=== PATIENT | female | born 1990 | race Hispanic/Latino ===

== ENCOUNTER 2021-05-17 09:57 | Emergency (ER) | payer OTHER ==
--- OUTSIDE RECORDS SUMMARY | 2021-05-17 10:00 | XMS REPORT | Continuity of Care Document ---
:1990 Author Organization [facility] t Address [address] [place] [address] Care Team Providers Name Role Phone Jonah Colmenares Primary Care Physician Iraida ABREU, T Attending Clinician Unavailable Lj CAMACHO Attending Clinician Unknown Attending Clinician Unavailable Doctor Unassigned, Name Attending Clinician Unavailable Payers Payer Name Policy Type Policy Effective Expiration Source Number Date Date [employer] - [id number] 2020 Un iversity of MANAGED 00:00:00 [place] [facility] MEDICAIDSUPERIOR STAR [facility] [id number] 2020[place] [address] OF [id number] 2018 Universit y of [id number] 2017 [place]00 [place] -[phone] [facility] [address], [place] [address]Medicaid CONTINUUM GENERIC NONE 2016 Univers ity of CONTINUUM 00:00:00 [place] [facility] GENERICNONE2016-P Br anch resentAgency [facility] [id number] 2018 2021 Universi ty of [facility] - MANAGED 00:00:00 23:59:59 [place] Me dical MEDICAIDCOMMUNITY [facility] [id number], [place] [address]Medicaid Advance Directives Directive Decision Effective Termination Comments Source Date Date Healthcare Agents on N/A [place] [facility] Agent Medical RelationshipCommunicationIrene Branch BarrientesMotherHealth Care [phone] (Mobile) Problems Condition Condition Condition Status Onset Resolution Last Treating Co mments Source Name Details Category Date Date Treatment Clinician Date Abscess of Abscess of Disease Active U nivers breast, breast, 6-29 [place] Contracept Contracept Disease Active U nivers ayden yaden 6-14 ity of management management [place] Obesity Obesity Disease Active Univers (BMI (BMI 6-14 ity of 30-39.9) 30-39.9) 00:00: [place] [address] Medical Branch Anemia of Anemia of Disease Active Uni vers mother in mother in 5-14 [place]y of , , [place]ical condition condition Bran ch Research Research Disease Active Overview: Thor doyle subject: subject: 3-15 Formattin ity of [facility] 00:00: g of this [place] as Study. Study. 00 note Medical Randomized Randomized might be Branch to study to study different drug on drug on from the 12/02/2017 12/02/2017 original. . . This patient was randomize d into the PROSPECT study on 8 and got into the medicatio n study group (IRB # [id number], PI Dr. Reynoso). She'll remain in study until her due date of 8, or until delivery. Please page the PRD upon patient arrival to L&D. Pager . Email: [email or web address] Your patient has been enrolled in the Giselle [place] [facility] [employer] [facility] [employer] [facility] [place] Trial. This trial enrolls women with a twin gestation who develop cervical shortenin g (cervical length <30 mm) and randomize s them to pessary placement , vaginal progester one, or placebo. The medical evidence currently does not demonstra te benefit for treatment of short cervix in twin gestation s with any medical or surgical intervent ion, but secondary analyses of other studies have suggested that there could be a benefit to pessary or vaginal progester one treatment . This study aims to answer this important question. We appreciat e your willingne ss to allow your patient to be enrolled in this trial. In order to maintain the highest scientifi c integrity for the results of this trial, we ask that you please do not prescribe additiona l open-labe l therapies for your patient for the indicatio n of a short cervix. For example, do not prescribe vaginal progester one or place a pessary in a patient who was not randomize d to that treatment arm. Patients who are symptomat ic with evidence of labor may be treated as per your usual routine with corticost eroids, antibioti cs, tocolytic s, etc. Subsequen t cervical length measureme nt is strongly discourag ed after randomiza tion, especiall y in patients randomize d to pessary because cervical length cannot be measured in the usual fashion. If you have any questions or concerns regarding how any managemen t decisions might affect your patient s participa tion in the study, please call our research team before you recommend any additiona l treatment .Also, please do not hesitate to call Dr. Reynoso, or Gege Ham RN, [facility] at [phone], for any questions or concerns. Allergies, Adverse Reactions, Alerts This patient has no known allergies or adverse reactions. Social History Social Habit Start Date Stop Date Quantity Comments Source Exposure to Not sure University SARS-CoV-2 [place] [facility] (event) [place] Tobacco use and 2021-05-15 2021-05-15 Former user Universi ty of exposure 00:00:00 00:00:00 [facility] Alcohol intake 2021-05-15 2021-05-15 Current University 00:00:00 00:00:00 non-drinker of [facility] alcohol (finding) Branch Tobacco Comment 2017-10-17 2017-10-17 4 cigarettes per Uni versity of 00:00:00 00:00:00 week; quit while [facility] dical pregnanct Branch Alcohol Comment 2015-07-25 2015-07-25 socially prior to Un iversity of 00:00:00 00:00:00 [facility] History of 2010-08-09 2015 User of smokeless Univers ity of tobacco use 00:00:00 00:00:[address] [facility] Sex Ass[birth year] At [birth year] Universit y of 00:00:00 00:00:00 [facility] Smoking Status Start Date Stop Date Source Former smoker 2021-05-15 00:00:00 2021-05-15 00:00:[address] [facility] Medications Ordered Filled Start Stop Current Ordering Indication Dosage Frequency Signature Comments Components Source Medication Medication Date Date Medication? Clinician (SIG) Name Name [place] Yes [id number] 1{tbl} Take 1 Univers ne 0.35 mg 6-14 tablet by ity of tablet 00:00: mouth [place] 00 daily. Medical Branch norethindro Yes [id number] 1{tbl} Take 1 Univers ne 0.35 mg 6-14 tablet by ity of tablet 00:00: mouth [place] 00 daily. Medical Branch norethindro Yes [id number] 1{tbl} Take 1 Univers ne 0.35 mg 6-14 tablet by ity of tablet 00:00: mouth [place] 00 daily. Medical Branch ascorbic Yes 500mg Take 1 Univer s acid, 4-23 tablet by ity of vitamin C, 00:00: mouth [place] 500 mg 00 daily. Medical tablet Branch Yes 1{tbl} Take 1 Unive rs vitamin 4-23 tablet by ity of w/FA tablet 00:00: mouth [place] 00 daily. Medical Branch docusate Yes 240mg Take 1 Univer s calcium 240 4-23 capsule by it y of mg capsule 00:00: mouth [place] daily as Medical needed for Branch Constipati on. ferrous Yes 325mg Take 1 Univers sulfate 325 4-23 tablet by ity of mg (65 mg 00:00: mouth 2 [place] iron) 00 (two) Medical tablet times Branch daily. ibuprofen 2017- Yes 600mg Take 1 Unive rs 600 mg 4-23 tablet by ity of tablet 00:00: mouth [place] 00 every 6 Medical (six) Branch hours as needed for Pain (scale 1-3) or Pain (scale 4-6) (Pain). Take with food or milk. HYDROcodone 2018-0 Yes 1{tbl} Take 1-2 Univers -acetaminop 4-23 tablets by it y of hen 5-325 00:00: mouth [place] mg tablet 00 every 6 Medical (six) Branch hours as needed for Pain (scale 7-10). Do not exceed 3 grams of acetaminop hen in 24 hours. ascorbic 2018-0 Yes 500mg Take 1 Univer s acid, 4-23 tablet by ity of vitamin C, 00:00: mouth [place] 500 mg 00 daily. Medical tablet Branch Yes 1{tbl} Take 1 Unive rs vitamin 4-23 tablet by ity of w/FA tablet 00:00: mouth [place] 00 daily. Medical Branch docusate 0 Yes 240mg Take 1 Univer s calcium 240 4-23 capsule by it y of mg capsule 00:00: mouth [place] 00 daily as Medical needed for Branch Constipati on. ferrous 0 Yes 325mg Take 1 Univers sulfate 325 4-23 tablet by ity of mg (65 mg 00:00: mouth 2 [place] iron) 00 (two) Medical tablet times Branch daily. ibuprofen 0 Yes 600mg Take 1 Unive rs 600 mg 4-23 tablet by ity of tablet 00:00: mouth [place] 00 every 6 Medical (six) Branch hours as needed for Pain (scale 1-3) or Pain (scale 4-6) (Pain). Take with food or milk. HYDROcodone 20180 Yes 1{tbl} Take 1-2 Univers -acetaminop 4-23 tablets by it y of hen 5-325 00:00: mouth [place] mg tablet 00 every 6 Medical (six) Branch hours as needed for Pain (scale 7-10). Do not exceed 3 grams of acetaminop hen in 24 hours. ascorbic 2018-0 Yes 500mg Take 1 Univer s acid, 4-23 tablet by ity of vitamin C, 00:00: mouth [place] 500 mg 00 daily. Medical tablet Branch 0 Yes 1{tbl} Take 1 Unive rs vitamin 4-23 tablet by ity of w/FA tablet 00:00: mouth [place] 00 daily. Medical Branch docusate 0 Yes 240mg Take 1 Univer s calcium 240 4-23 capsule by it y of mg capsule 00:00: mouth [place] 00 daily as Medical needed for Branch Constipati on. ferrous 2018-0 Yes 325mg Take 1 Univers sulfate 325 4-23 tablet by ity of mg (65 mg 00:00: mouth 2 [place] iron) 00 (two) Medical tablet times Branch daily. ibuprofen 0 Yes 600mg Take 1 Unive rs 600 mg 4-23 tablet by ity of tablet 00:00: mouth [place] 00 every 6 Medical (six) Branch hours as needed for Pain (scale 1-3) or Pain (scale 4-6) (Pain). Take with food or milk. HYDROcodone Yes 1{tbl} Take 1-2 Univers -acetaminop 4-23 tablets by it y of hen 5-325 00:00: mouth [place] mg tablet 00 every 6 Medical (six) Branch hours as needed for Pain (scale 7-10). Do not exceed 3 grams of acetaminop hen in 24 hours. metoclopram Yes [id number] 10mg Take 1 Univers anali HCl 10 2-15 7 tablet by ity of mg tablet 00:00: mouth [place] 00 every 8 Medical (eight) Branch hours. metoclopram Yes [id number] 10mg Take 1 Univers anali HCl 10 2-15 7 tablet by ity of mg tablet 00:00: mouth [place] 00 every 8 Medical (eight) Branch hours. metoclopram 0 Yes [id number] 10mg Take 1 Univers anali HCl 10 2-15 7 tablet by ity of mg tablet 00:00: mouth [place] 00 every 8 Medical (eight) Branch hours. 2016-09 Yes 1{tbl} Take 1 Unive rs multivitami 2-20 tablet by ity of n tablet 00:00: mouth [place] 00 daily. Medical Branch CITRANATAL 2016-09 Yes Univers HARMONY, 2-20 ity of IRON FUM, 00:00: [place] 27 mg 00 Medical iron-1 mg Branch -50 mg-260 mg Cap 2016-09 Yes 1{tbl} Take 1 Unive rs multivitami 2-20 tablet by ity of n tablet 00:00: mouth [place] 00 daily. Medical Branch CITRANATAL 2016-09 Yes Univers HARMONY, 2-20 ity of IRON FUM, 00:00: [place] 27 mg 00 Medical iron-1 mg Branch -50 mg-260 mg Cap 2016-09 Yes 1{tbl} Take 1 Unive rs multivitami 2-20 tablet by ity of n tablet 00:00: mouth [place] 00 daily. Medical Branch CITRANATAL 2016-09 Yes Univers HARMONY, 2-20 ity of IRON FUM, 00:00: [place] 27 mg 00 Medical iron-1 mg Branch -50 mg-260 mg Cap doxylamine- 2016-09 Yes [id number] 2{tbl} Take 2 Univers pyridoxine, 2-18 tablets by it y of vit B6, 00:00: mouth at [place] (DICLEGIS) 00 bedtime. Medic al 10-10 mg Branch per tablet doxylamine- 2016-09 Yes [id number] 2{tbl} Take 2 Univers pyridoxine, 2-18 tablets by it y of vit B6, 00:00: mouth at [place] [facility] bedtime. Medic al 10-10 mg Branch per tablet doxylamine- 2016-09 Yes [id number] 2{tbl} Take 2 Univers pyridoxine, 2-18 tablets by it y of vit B6, 00:00: mouth at [place] (DICLEGI) 00 bedtime. Medic al 10-10 mg Branch per tablet Immunizations Ordered Filled Immunization Date Status Comments [facility] e Immunization Name Name MMR 2018-01-10 Completed University of 00:00:00 [facility] MMR 2018-01-10 Completed University of 00:00:00 [facility] MMR 2018-01-10 Completed University of 00:00:00 [facility] HPV9 2018-01-09 Completed University of 00:00:00 [facility] HPV9 2018-01-09 Completed University of 00:00:00 [facility] HPV9 2018-01-09 Completed University of 00:00:00 [facility] Influenza Virus 2017-10-18 Completed Universit y of Vaccine Quad IM 3+ 00:00:00 [facility] Influenza Virus 2017-10-18 Completed Universit y of Vaccine Quad IM 3+ 00:00:00 [facility] Influenza Virus 2017-10-18 Completed Universit y of Vaccine Quad IM 3+ 00:00:00 [facility] Influenza Virus 2017-08-09 Completed Universit y of Vaccine Quad IM 3+ 00:00:00 [facility] Influenza Virus 2017-08-09 Completed Universit y of Vaccine Quad IM 3+ 00:00:00 [facility] Influenza Virus 2017-08-09 Completed Universit y of Vaccine Quad IM 3+ 00:00:00 [facility] HPV9 2016-03-18 Completed University of 00:00:00 [facility] HPV9 2016-03-18 Completed University of 00:00:00 [facility] HPV9 2016-03-18 Completed University of 00:00:00 [facility] TDAP 2016-01-21 Completed University of 00:00:00 [facility] HPV9 2016-01-21 Completed University of 00:00:00 [facility] TDAP 2016-01-21 Completed University of 00:00:00 [facility] HPV9 2016-01-21 Completed University of 00:00:00 [facility] TDAP 2016-01-21 Completed University of 00:00:00 [facility] HPV9 2016-01-21 Completed University of 00:00:00 [facility] Influenza Virus 2015-07-25 Completed Universit y of Vaccine Quad IM 3+ 00:00:00 [facility] Influenza Virus 2015-07-25 Completed Universit y of Vaccine Quad IM 3+ 00:00:00 [facility] Influenza Virus 2015-07-25 Completed Universit y of Vaccine Quad IM 3+ 00:00:00 [facility] HEPATITIS A 2005-04-22 Completed University of 00:00:00 [facility] HEPATITIS A 2005-04-22 Completed University of 00:00:00 [facility] HEPATITIS A 2005-04-22 Completed University of 00:00:00 [facility] Vital Signs Vital Name Observation Time Observation Value Comments Source Systolic blood 2021-05-15 18:07:00 137 mm[Hg] Univer sity of pressure [facility] Diastolic blood 2021-05-15 18:07:00 79 mm[Hg] Unive rsity of pressure [facility] Heart rate 2021-05-15 18:07:00 100 /min [facility] Body temperature 2021-05-15 18:07:00 37.11 Madhavi [facility] rate 2021-05-15 18:07:00 16 /min [facility] Body height 2021-05-15 18:07:00 172.7 cm [facility] Body weight 2021-05-15 18:07:00 129.729 kg [facility] BMI 2021-05-15 18:07:00 43.49 kg/m2 [facility] Oxygen saturation in 2021-05-15 18:07:00 99 /min [facility] Arterial blood by [facility] Pulse oximetry [place] Procedures Procedure Date / Time Performed Performing Clinician Sour e POCT RAPID STREP 2021-05-15 18:47:00 Haleigh Calhoun [facility] SCREEN FOR GROUP A Medical Bran h ASSIGNMENT OF BENEFITS 2021-05-15 17:36:06 Doctor Unassigned, No [facility] Name [facility] Encounters Start End Encounter Admission Attending Care Care Encounter Source Date/Time Date/Time Type Type Clinicians Facility Department ID 2021-05-16 2021-05-16 Letter CESAR Khoury [id number] Univers 00:00:00 00:00:00 (Out) Radha CASTILLO [id number] it y of HOSPITAL [id number] [place] [id number] [facility] 019 Branch 2021-05-15 2021-05-15 Urgent Haleigh Calhoun [facility] [id number] Univers 12:53:20 13:13:20 Care Unknown, Attending Health [id number] ity of [place] [id number] [place]?Blea [phone] [address] Medical Office Building 2021-05-15 2021-05-15 Orders Doctor GUERRERO [id number] Univers 00:00:00 00:00:00 Only Unassigned, JONATHAN [id number] ity of [place] [facility] [id number] [place] [id number] [facility] 009 [place] Results Test Description Test Time Test Comments Results Result Comments Source POCT RAPID STREP SCREEN FOR GROUP A 2021-05-15 18:57:00 Test Item Value Reference Range Interpretation Comme nts POCT GP A STREP (test code = 65810-0) neg Negative - Negat ayden Lab Interpretation (test code = 47345-4) Normal [facility]
--- NOTE | 2021-05-17 12:34 | ER ---
Nurse's Notes [facility] Name: Apryl Rob Age: 30 yrs Sex: Female : 1990 Arrival Date: 05/17/2021 Time: 10:03 Bed 17 Private MD: Diagnosis: Pain in throat Presentation: 05/17 10:03 Chief complaint: Patient states: Diagnosed with COVID yesterday. Had a negative strep ss test yesterday, but has been complaining of sore/ swollen throat that is worse this morning. Coronavirus screen: Client presents with at least one sign or symptom that may indicate coronavirus-19. Standard/surgical mask placed on the client. Provider contacted for isolation considerations. Ebola Screen: Patient denies exposure to infectious person. Patient denies travel to an Ebola-affected area in the 21 days before illness onset. Initial Sepsis Screen: Does the patient meet any 2 criteria? No. Patient's initial sepsis screen is negative. Does the patient have a suspected source of infection? No. Patient's initial sepsis screen is negative. Risk Assessment: Do you want to hurt yourself or someone else? Patient reports no desire to harm self or others. Onset of symptoms was May 15, 2021. 10:03 Method Of Arrival: EMS: [facility] ss 10:03 Acuity: MARIELLE 3 ss Vital Signs: 10:03 BP 166 / 84; Pulse 108; Resp 20; Temp 98.9(O); Pulse Ox 99% on R/A; ss ED Course: 10:03 Patient arrived in ED. ss 10:03 Arm band placed on right wrist. ss 10:06 Triage completed. ss 10:07 Susan Hays FNP-C is PHCP. kb 10:07 Juan Marrufo MD is Attending Physician. kb 10:19 Patient has correct armband on for positive identification. Bed in low position. Call mh5 light in reach. Side rails up X 1. Pulse ox on. NIBP on. 10:19 Strep Sent. 5 10:19 Strep swab sent to lab. [facility] 10:27 Cherelle Mendez, LOIS is Primary Nurse. tr6 Administered Medications: 13:17 Drug: GI Cocktail without - (Maalox Suspension 30 ml, Lidocaine Liquid 2 % 15 tr6 ml) Route: PO; Outcome: 12:33 Discharge ordered by . kb 13:37 Patient left the ED. ss Signatures: Susan Hays, MARYC DOUG-Yamini Mireles RN RN Aysha Campbell [facility] Cherelle Mendez RN RN tr6
--- NOTE | 2021-05-17 12:34 | EDPHYS ---
Physician Documentation [facility] Name: Apryl Rob Age: 30 yrs Sex: Female : 1990 Arrival Date: 05/17/2021 Time: 10:03 Bed 17 Private MD: ED Physician Juan Marrufo HPI: 05/17 13:14 This 30 yrs old Female presents to ER via EMS with complaints of Sore Throat. kb 13:14 The patient presents with sore throat. The patient describes throat pain as constant. kb Onset: The symptoms/episode began/occurred yesterday. Severity of symptoms: At their worst the symptoms were moderate, in the emergency department the symptoms are unchanged. Modifying factors: The symptoms are alleviated by nothing, the symptoms are aggravated by swallowing, Patient's oral intake status: good. Associated signs and symptoms: Pertinent positives: Sore throat. The patient has not experienced similar symptoms in the past. The patient has been recently seen by a physician: at a clinic, out of Town, yesterday. Pt reports sore throat since yesterday. COVID positive yesterday at [facility] clinic, but continued to have sore throat today. . ROS: 13:18 Constitutional: Negative for fever, chills, and weight loss. kb 13:18 ENT: Positive for sore throat. 13:18 All other systems are negative. Exam: 13:18 Constitutional: This is a well developed, well nourished patient who is awake, alert, kb and in no acute distress. Head/Face: Normocephalic, atraumatic. Cardiovascular: Regular rate and rhythm with a normal S1 and S2. No gallops, murmurs, or rubs. No pulse deficits. Respiratory: Respirations even and unlabored. No increased work of breathing, no retractions or nasal flaring. Skin: Warm, dry with normal turgor. Normal color. MS/ Extremity: Pulses equal, no cyanosis. Neurovascular intact. Full, normal range of motion. Neuro: Awake and alert, GCS 15, oriented to person, place, time, and situation. Moves all extremities. Normal gait. Psych: Awake, alert, with orientation to person, place and time. Behavior, mood, and affect are within normal limits. 13:18 ENT: Posterior pharynx: Airway: normal, Tonsils: with erythema, Uvula: normal, midline, swelling, is not appreciated, erythema, that is moderate. Vital Signs: 10:03 BP 166 / 84; Pulse 108; Resp 20; Temp 98.9(O); Pulse Ox 99% on R/A; ss MDM: 10:07 Patient medically screened. 13:18 Data reviewed: vital signs, nurses notes. Data interpreted: Pulse oximetry: on room air kb is 99 %. Interpretation: normal. Counseling: I had a detailed discussion with the patient and/or guardian regarding: the historical points, exam findings, and any diagnostic results supporting the discharge/admit diagnosis, lab results, the need for outpatient follow up, a family practitioner, to return to the emergency department if symptoms worsen or persist or if there are any questions or concerns that arise at home. 05/17 10:10 Order name: Strep; Complete Time: 12:33 kb 05/17 12:46 Order name: Throat Culture EDMS Administered Medications: 13:17 Drug: GI Cocktail without - (Maalox Suspension 30 ml, Lidocaine Liquid 2 % 15 tr6 ml) Route: PO; Disposition: 05/18 08:32 Co-signature as Attending Physician, Juan Marrufo MD I agree with the assessment and marlene plan of care. Disposition Summary: 05/17/21 12:33 Discharge Ordered Location: Home kb Condition: Stable kb Diagnosis - Pain in throat kb Followup: kb - With: Private Physician - When: 2 - 3 days - Reason: Recheck today's complaints, Continuance of care, Re-evaluation by your physician Followup: kb - With: Emergency Department - When: As needed - Reason: Worsening of condition Discharge Instructions: - Discharge Summary Sheet kb - Sore Throat, Dsku-[id number] kb Forms: - Medication Reconciliation Form kb - Thank You Letter kb - Antibiotic Education kb - Prescription Opioid Use kb Signatures: Dispatcher [employer] EDMS Susan Hays, JARROD CAMACHO-Juan Zurita MD MD cha Ramnanan, Tiffany, RN RN tr6
[2021-05-17] MEDS ORDERED: MAGNES/ALUMIN/SIMET 30ML UCUP ONE (13:16)
[2021-05-17] MEDS ORDERED: LIDOCAINE VISCOUS 2% SOLN 15 ML UDC ONE (13:16)
[2021-05-17 13:41] VITALS: BP 166/84; TEMP 98.9; O2SAT 99
== END 2021-05-17 13:37 | disposition home or self-care (01) ==
LOC: ER 09:57
DX: R07.0 Pain in throat (principal)
CPT/HCPCS: 87070; 87081; 99284

== ENCOUNTER 2022-03-23 08:35 | Emergency (ER) | payer OTHER ==
[2022-03-23 09:13] LABS: Absolute Lymphocytes (CBC) 1.9 K/uL (0.7-4.9); Hematocrit 37.2 % (36.0-45.0); Lymphocytes % 22.7 % (15.3-44.8); MCV 72.5 fL (80-100); MPV 7.6 fL (7.6-11.3); RBC Red Blood Cell Count 5.14 M/uL (3.86-4.86)
[2022-03-23 09:31] LABS: Albumin 3.9 g/dL (3.4-5.0); Bilirubin Total 0.3 mg/dL (0.2-1.0); Potassium 3.4 mmol/L (3.5-5.1); Protein, Total 8.7 g/dL (6.4-8.2)
[2022-03-23] MEDS ORDERED: DIPHENHYDRAMINE 50 MG/ML VIAL ONE (09:34)
[2022-03-23] MEDS ORDERED: METOCLOPRAMIDE 10 MG/2mL INJ ONE (09:34)
[2022-03-23] MEDS ORDERED: NA CHLORIDE 0.9% 1,000 ML ONE (09:34)
[2022-03-23 10:53] LABS: Urine Blood 3+ (Negative); Urine Glucose Negative (Negative); Urine Protein 1+ (Negative)
--- NOTE | 2022-03-23 11:35 | RAD REPORT ---
EXAM DESCRIPTION: CT - Abdomen Pelvis W Contrast - 03/23/2022 11:09 am CLINICAL HISTORY: Abdominal pain COMPARISON: none. TECHNIQUE: Computed axial tomography of the abdomen pelvis was obtained. 100 cc Isovue-300 was admin istered intravenously. Oral contrast was not requested which limits evaluation of bowel and appendix All CT scans are performed using dose optimization technique as appropriate and may include automated exposure control or mA/KV adjustment according to patient size. FINDINGS: The liver, spleen, pancreas, adrenal and kidneys appear unremarkable. There is no evidence of diverticulitis. No adnexal mass Tampon within the vagina. The gallbladder is distended. Equivocal tiny gallstones IMPRESSION: Gallbladder distention. Equivocal tiny gallstones. Ultrasound recommended
[2022-03-23] MEDS ORDERED: MORPHINE 4 MG/ML SYR ONE (15:35)
--- NOTE | 2022-03-23 17:02 | ER ---
Nurse's Notes [facility] Name: Apryl Rob Age: 31 yrs Sex: Female : 1990 Arrival Date: 03/23/2022 Time: 08:37 Bed 19 Private MD: Diagnosis: Other cholelithiasis without obstruction Presentation: 03/23 08:44 Chief complaint: Patient states: pt reported abdominal pain n/v x4 days. Coronavirus lp1 screen: Vaccine status: Patient reports being unvaccinated. Ebola Screen: Patient denies travel to an Ebola-affected area in the 21 days before illness onset. Initial Sepsis Screen: Does the patient meet any 2 criteria? No. Patient's initial sepsis screen is negative. Does the patient have a suspected source of infection? No. Patient's initial sepsis screen is negative. Risk Assessment: Do you want to hurt yourself or someone else? Patient reports no desire to harm self or others. Onset of symptoms was March 20, 2022. 08:44 Method Of Arrival: Ambulatory lp1 08:44 Acuity: MARIELLE 3 lp1 Triage Assessment: 08:46 General: Appears in no apparent distress. Behavior is calm, cooperative. Pain: lp1 Complains of pain in abdomen. GI: Reports nausea, Pain is 8 out of 10 on a pain scale. vomiting. 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 - Social history:: Smoking status: Patient reports the use of cigarette tobacco products, denies chronic smoking, but will smoke occasionally, Patient uses alcohol, occasionally. Screenin:50 Abuse screen: Denies threats or abuse. Denies injuries from another. Nutritional bp screening: No deficits noted. Tuberculosis screening: No symptoms or risk factors identified. Fall Risk None identified. Assessment: 08:50 General: SEE TRIAGE NOTE. bp 10:56 Reassessment: No changes from previously documented assessment. Patient and/or family bp updated on plan of care and expected duration. Pain level reassessed. 12:27 Reassessment: No changes from previously documented assessment. Patient and/or family bp updated on plan of care and expected duration. Pain level reassessed. 14:30 Reassessment: Patient is alert, oriented x 3, equal unlabored respirations, skin bp warm/dry/pink. U/S PENDING. 16:14 Reassessment: U/S COMPLETED Patient states symptoms have improved. bp 17:29 Reassessment: PT D/C HOME AMBULATORY. bp Vital Signs: 08:44 BP 130 / 97; Pulse 88; Resp 17; Temp 98.4; Pulse Ox 100% ; Weight 104.33 kg; Height 5 lp1 ft. 8 in. (172.72 cm); 10:56 BP 115 / 70; Pulse 61; Resp 16; Pulse Ox 100% ; bp 12:27 BP 115 / 66; Pulse 64; Resp 16; Pulse Ox 98% ; bp 14:30 BP 115 / 73; Pulse 69; Resp 16; Pulse Ox 100% ; bp 16:13 BP 135 / 73; Pulse 68; Resp 16; Pulse Ox 98% ; bp 17:29 BP 133 / 75; Pulse 65; Resp 16; Pulse Ox 99% ; bp 08:44 Body Mass Index 34.97 (104.33 kg, 172.72 cm) lp1 ED Course: 08:37 Patient arrived in ED. as 08:42 Arun Blank PA is PHCP. jmm 08:42 Anant Araujo MD is Attending Physician. jmm 08:46 Triage completed. lp1 08:50 Patient has correct armband on for positive identification. Bed in low position. Call bp light in reach. Side rails up X2. Adult w/ patient. 08:50 Arm band placed on. bp 08:52 Hermilo Mccormack, RN is Primary Nurse. bp 09:03 Inserted saline lock: 20 gauge in right antecubital area, using aseptic technique. bp Blood collected. 11:11 CT Abd/Pelvis - IV Contrast Only In Process Unspecified. EDMS 15:37 US Abdomen Limited Sent. bp 15:44 US Abdomen Limited In Process Unspecified. EDMS 17:00 Reggie Lowery MD is Referral Physician. jmm 17:29 No provider procedures requiring assistance completed. IV discontinued, intact, bp bleeding controlled, No redness/swelling at site. Pressure dressing applied. Administered Medications: 09:20 Drug: diphenhydrAMINE 12.5 mg Route: IVP; Site: right antecubital; bp 17:31 Follow up: Response: No adverse reaction bp 09:20 Drug: Reglan (metoCLOPramide) 20 mg Route: IVP; Site: right antecubital; bp 17:31 Follow up: Response: No adverse reaction bp 09:20 Drug: NS 0.9% 1000 ml Route: IV; Rate: 1 bolus; Site: right antecubital; bp 17:31 Follow up: IV Status: Completed infusion; IV Intake: 1000ml bp 15:37 Drug: morphine 4 mg Route: IVP; Infused Over: 4 mins; Site: right antecubital; bp 17:30 Follow up: Response: Pain is decreased bp Medication: 08:50 VIS not applicable for this client. bp Intake: 17:31 IV: 1000ml; Total: 1000ml. bp Outcome: 17:01 Discharge ordered by . samara 17:29 Discharged to home ambulatory. bp 17:29 Condition: stable 17:29 Discharge instructions given to patient, Instructed on discharge instructions, follow up and referral plans. medication usage, Demonstrated understanding of instructions, follow-up care, medications, Prescriptions given X 2. 17:31 Patient left the ED. bp Signatures: Dispatcher [employer] EDMS Arun Blank PA PA jmm Martinez, Amelia as Pena, Laura, RN RN lp1 Hermilo Mccormack RN RN bp
--- NOTE | 2022-03-23 17:02 | EDPHYS ---
Physician Documentation [facility] Name: Apryl Rob Age: 31 yrs Sex: Female : 1990 Arrival Date: 03/23/2022 Time: 08:37 Bed 19 Private MD: ED Physician Anant Araujo HPI: 03/23 09:11 This 31 yrs old Female presents to ER via Ambulatory with complaints of jmm Epigastric Pain, Nausea/Vomiting. 09:11 The patient presents with abdominal pain. Onset: The symptoms/episode began/occurred jmm gradually, 3 day(s) ago. The symptoms do not radiate. Associated signs and symptoms: Pertinent positives: nausea and vomiting, diarrhea, Pertinent negatives: fever. The symptoms are described as achy, crampy. Modifying factors: The symptoms are alleviated by nothing, the symptoms are aggravated by nothing. It is unknown whether or not the patient has had similar symptoms in the past. 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 - Social history:: Smoking status: Patient reports the use of cigarette tobacco products, denies chronic smoking, but will smoke occasionally, Patient uses alcohol, occasionally. ROS: 09:11 Constitutional: Negative for fever, chills, and weight loss, Cardiovascular: Negative jmm for chest pain, palpitations, and edema, Respiratory: Negative for shortness of breath, cough, wheezing, and pleuritic chest pain. 09:11 Abdomen/GI: Positive for abdominal pain, nausea and vomiting, diarrhea. 09:11 All other systems are negative. Exam: 09:11 Constitutional: This is a well developed, well nourished patient who is awake, alert, jmm and in no acute distress. Head/Face: atraumatic. Eyes: EOMI, no conjunctival erythema appreciated ENT: Moist Mucus Membranes Neck: Trachea midline, Supple Chest/axilla: Normal chest wall appearance and motion. Cardiovascular: Regular rate and rhythm. No edema appreciated Respiratory: Normal respirations, no respiratory distress appreciated 09:11 Skin: General appearance color normal MS/ Extremity: Moves all extremities, no obvious deformities appreciated, no edema noted to the lower extremities Neuro: Awake and alert Psych: Behavior is normal, Mood is normal, Patient is cooperative and pleasant 09:11 Abdomen/GI: Inspection: abdomen appears normal, Bowel sounds: normal, Palpation: soft, mild abdominal tenderness, in all quadrants. Vital Signs: 08:44 BP 130 / 97; Pulse 88; Resp 17; Temp 98.4; Pulse Ox 100% ; Weight 104.33 kg; Height 5 lp1 ft. 8 in. (172.72 cm); 10:56 BP 115 / 70; Pulse 61; Resp 16; Pulse Ox 100% ; bp 12:27 BP 115 / 66; Pulse 64; Resp 16; Pulse Ox 98% ; bp 14:30 BP 115 / 73; Pulse 69; Resp 16; Pulse Ox 100% ; bp 16:13 BP 135 / 73; Pulse 68; Resp 16; Pulse Ox 98% ; bp 17:29 BP 133 / 75; Pulse 65; Resp 16; Pulse Ox 99% ; bp 08:44 Body Mass Index 34.97 (104.33 kg, 172.72 cm) lp1 MDM: 09:10 Patient medically screened. [facility] 17:00 Data reviewed: vital signs, nurses notes. Counseling: I had a detailed discussion with samara the patient and/or guardian regarding: the historical points, exam findings, and any diagnostic results supporting the discharge/admit diagnosis, lab results, radiology results, the need for outpatient follow up, to return to the emergency department if symptoms worsen or persist or if there are any questions or concerns that arise at home. 03/23 09:02 Order name: CBC with Diff; Complete Time: 09:32 bp 03/23 09:02 Order name: CMP; Complete Time: 09:32 bp 03/23 09:02 Order name: Lipase; Complete Time: 09:32 bp 03/23 10:53 Order name: Urine --Ancillary (enter results); Complete Time: 11:19 eb 03/23 10:54 Order name: Urine Dipstick-Ancillary; Complete Time: 11:19 EDMS 03/23 10:57 Order name: CT Abd/Pelvis - IV Contrast Only; Complete Time: 11:37 [facility] 03/23 09:02 Order name: IV Saline Lock; Complete Time: 09:02 bp 03/23 09:02 Order name: Labs collected and sent; Complete Time: 09:02 bp 03/23 09:02 Order name: Urine Dipstick-Ancillary (obtain specimen); Complete Time: 10:56 bp 03/23 11:37 Order name: US Abdomen Limited; Complete Time: 17:27 [facility] 03/23 09:02 Order name: Urine Test (obtain specimen); Complete Time: 10:56 bp Administered Medications: 09:20 Drug: diphenhydrAMINE 12.5 mg Route: IVP; Site: right antecubital; bp 17:31 Follow up: Response: No adverse reaction bp 09:20 Drug: Reglan (metoCLOPramide) 20 mg Route: IVP; Site: right antecubital; bp 17:31 Follow up: Response: No adverse reaction bp 09:20 Drug: NS 0.9% 1000 ml Route: IV; Rate: 1 bolus; Site: right antecubital; bp 17:31 Follow up: IV Status: Completed infusion; IV Intake: 1000ml bp 15:37 Drug: morphine 4 mg Route: IVP; Infused Over: 4 mins; Site: right antecubital; bp 17:30 Follow up: Response: Pain is decreased bp Disposition Summary: 03/23/22 17:01 Discharge Ordered Location: Home [facility] Condition: Stable [facility] Diagnosis - Other cholelithiasis without obstruction [facility] Followup: [facility] - With: Reggie Lowery MD - When: 2 - 3 days - Reason: Recheck today's complaints, Continuance of care, Re-evaluation by your physician Discharge Instructions: - Discharge Summary Sheet [facility] - Cholelithiasis [facility] Forms: - Medication Reconciliation Form [facility] - Thank You Letter [facility] - Antibiotic Education [facility] - Prescription Opioid Use [facility] - Work release form eb Prescriptions: - dicyclomine 20 mg Oral Tablet - take 1 tablet by ORAL route 4 times per day; 20 tablet; Refills: 0, Product [facility] Selection Permitted - ondansetron 4 mg Oral tablet,disintegrating - place 1 tablet by TRANSLINGUAL route every 4-6 hours As needed; 30 tablet; [facility] Refills: 0, Product Selection Permitted Signatures: Dispatcher [employer] Arun Hendrickson PA PA jmm Pena, Laura, RN RN lp1 Hermilo Mccormack RN RN bp
--- NOTE | 2022-03-23 17:08 | RAD REPORT ---
EXAM DESCRIPTION: US - Abdomen Exam Limited - 03/23/2022 3:42 pm CLINICAL HISTORY: ABD PAIN COMPARISON: Abdomen Pelvis W Contrast dated 03/23/2022 FINDINGS: Multiple variably sized gallstones are present within the lumen. There is no wall thickeni ng or pericholecystic fluid. No common duct stone or biliary tree dilatation identified. IMPRESSION: Multi stone cholelithiasis with no other gallbladder or biliary tree finding.
[2022-03-23 18:07] VITALS: TEMP 98.4
[2022-03-23 18:15] VITALS: BP 133/75; O2SAT 99
== END 2022-03-23 17:31 | disposition home or self-care (01) ==
LOC: ER 08:35
DX: K80.20 Calculus of gallbladder without cholecystitis without obstruction (principal); R10.13 Epigastric pain; R11.2 Nausea with vomiting, unspecified; Z72.0 Tobacco use
CPT/HCPCS: 96361; 85025; 36415; 81025; 81003; 83690; 80053; 74177; 76705; 96375; 96374; 99284; Q9967; J2765; J1200; J7030